=== PATIENT | female | born 1975 | race Asian ===

== ENCOUNTER 2017-06-07 11:44 | Observation (INO) | payer MEDICAID ==
[2017-06-07] MEDS ORDERED: Ondansetron 4 MG/2 ML SDV IVPUSH ONE (12:18)
[2017-06-07] MEDS ORDERED: HYDROmorphone 0.5 MG/0.5 ML Syringe IVPUSH ONE ×3 (12:18→15:51)
--- NOTE | 2017-06-07 12:24 | EDM.PDOC ---
ED HPI GENERAL MEDICAL PROBLEM - General Chief Complaint: Abdominal Pain Stated Complaint: ABDOMINAL PAIN Time Seen by Provider: 06/07/17 12:21 Source of Information: Reports: Patient History Limitations: Reports: No Limitations - History of Present Illness INITIAL COMMENTS - FREE TEXT/NARRATIVE: pt was seen earlier at the clinic and she was found to have lower abdomanal pain and her wbc was 20,000. She has had some pain for 2-3 days. She did have a small bm this am. She has not been having regular bms. Onset: Gradual, Other Duration: Day(s):, Getting Worse Location: Reports: Abdomen Associated Symptoms: Reports: Other ( constipation and lower abdomanal pain. ) Lower Abdomen Pain Score (Numeric/FACES): 10 - Related Data Allergies Allergy/AdvReac Type Severity Reaction Status Date / Time bupropion HCl Allergy Hives Verified 06/07/17 19:47 [From Wellbutrin] Home Meds: Home Meds Sertraline HCl [Sertraline HCl] 50 mg PO DAILY 02/06/16 [History] L. 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 Psychiatric History: Reports: Depression - Past Surgical History HEENT Surgical History: Reports: Oral Surgery, Tonsillectomy Female Surgical History: Reports: Section Social & Family History - Tobacco Use Smoking Status *Q: Current Every Day Smoker Years of Tobacco use: 20 Packs/Tins Daily: 1 Second Hand Smoke Exposure: Yes - Caffeine Use Caffeine Use: Reports: Coffee - Alcohol Use Days Per Week of Alcohol Use: 5 Number of Drinks Per Day: 2 Total Drinks Per Week: 10 - Recreational Drug Use Recreational Drug Use: No ED ROS GENERAL - Review of Systems Review Of Systems: See Below Constitutional: Reports: Decreased Appetite HEENT: Reports: No Symptoms Respiratory: Reports: No Symptoms Cardiovascular: Reports: No Symptoms Endocrine: Reports: No Symptoms GI/Abdominal: Reports: Abdominal Pain, Other (pt has pain accross the lower abdoman. She has not had diarrhea. She has not been vomiting. ) : Reports: No Symptoms Musculoskeletal: Reports: No Symptoms Skin: Reports: No Symptoms ED EXAM, GI/ABD - Physical Exam Exam: See Below Text/Narrative:: Pt has pain accross her lower abdoman. She states this comes in waves and goes to the level of a 7. She does not have a fever. Exam Limited By: No Limitations General Appearance: Alert, Moderate Distress Ears: Normal TMs Nose: Normal Inspection Throat/Mouth: Normal Inspection Head: Atraumatic Neck: Normal Inspection Respiratory/Chest: No Respiratory Distress Cardiovascular: Regular Rate, Rhythm GI/Abdominal Exam: Other ( Pt has diffuse lower abdomanal tenderness. This does not localize well. ) Rectal (Female) Exam: Other (pt has no hard stool in the rectum and no masses present. ) Back Exam: Normal Inspection Neurological: Alert, Oriented, Normal Cognition Psychiatric: Normal Affect, Anxious Course - Vital Signs Last Recorded V/S: Last Vital Signs Temp 36.8 C 06/08/17 02:57 Pulse 92 06/08/17 02:57 Resp 16 06/08/17 02:57 BP 111/59 L 06/08/17 02:57 Pulse Ox 96 06/08/17 02:57 - Orders/Labs/Meds Orders: Active Orders 24 hr Category Date Time Status Pelvis Non OB Ltd [US] Stat Exams 06/07/17 14:48 Taken Transvaginal Non OB [US] Stat Exams 06/07/17 14:48 Taken Medication Orders Acetaminophen (Tylenol) 650 mg PO Q4H PRN PRN Reason: Pain (Mild 1-3)/fever Last Admin: 06/08/17 07:11 Dose: 650 mg Admin: 06/08/17 02:59 Dose: 650 mg Admin: 06/07/17 22:55 Dose: 650 mg Admin: 06/07/17 18:21 Dose: 650 mg Docusate Sodium (Colace) 100 mg PO BID PRN PRN Reason: Constipation Hydromorphone HCl (Dilaudid) 0.5 mg IVPUSH Q2H PRN PRN Reason: Pain Last Admin: 06/08/17 06:40 Dose: 0.5 mg Admin: 06/08/17 00:59 Dose: 0.5 mg Admin: 06/07/17 20:52 Dose: 0.5 mg Admin: 06/07/17 18:22 Dose: 0.5 mg Sodium Chloride (Normal Saline) 1,000 mls @ 125 mls/hr IV ASDIRECTED CONCEPCION Last Admin: 06/08/17 03:47 Dose: 125 mls/hr Infusion: 06/08/17 02:48 Dose: 125 mls/hr Admin: 06/07/17 18:48 Dose: 125 mls/hr Potassium Chloride 20 meq/ (Premix) 100 mls @ 50 mls/hr IV ONETIME ONE Stop: 06/08/17 08:15 Last Infusion: 06/08/17 07:12 Dose: 30 mls/hr Admin: 06/08/17 06:34 Dose: 50 mls/hr Potassium Chloride 20 meq/ (Premix) 100 mls @ 50 mls/hr IV ONETIME ONE Stop: 06/08/17 10:29 Cefoxitin Sodium 2 gm/ Sodium (Chloride) 50 mls @ 100 mls/hr IV Q6H [facility] Magnesium Hydroxide (Milk Of Magnesia) 30 ml PO Q12H PRN PRN Reason: Constipation Ondansetron HCl (Zofran) 4 mg IV Q4H PRN PRN Reason: Nausea/Vomiting Oxycodone HCl (Oxycodone) 5 mg PO Q4H PRN PRN Reason: Pain (moderate 4-6) Last Admin: 06/08/17 07:11 Dose: 5 mg Admin: 06/08/17 02:59 Dose: 5 mg Admin: 06/07/17 22:55 Dose: 5 mg Admin: 06/07/17 18:22 Dose: 5 mg Pantoprazole Sodium (Protonix) 40 mg PO DAILY@0730 [facility] Polyethylene Glycol (Miralax) 17 gm PO DAILY PRN PRN Reason: Constipation Sertraline HCl (Zoloft) 50 mg PO DAILY [facility] Sodium Chloride (Saline Flush) 10 ml FLUSH ASDIRECTED PRN PRN Reason: Keep Vein Open Zolpidem Tartrate (Ambien) 5 mg PO BEDTIME PRN PRN Reason: Sleep Last Admin: 06/07/17 20:52 Dose: 5 mg Labs: Laboratory Tests 06/07/17 06/07/17 Range/Units 16:40 16:40 WBC 18.5 H (4.5-11.0) K/uL RBC 3.56 (3.30-5.50) M/uL Hgb 12.9 (12.0-15.0) g/dL Hct 37.2 (36.0-48.0) % MCV 105 H (80-98) fL MCH 36 H (27-31) pg MCHC 35 (32-36) % Plt Count 293 (150-400) K/uL Add Manual Diff Yes Neutrophils % (Manual) 81 H (36-66) % Band Neutrophils % 1 L (5-11) % Lymphocytes % (Manual) 7 L (24-44) % Monocytes % (Manual) 10 H (2-6) % Lipase 68 L (73-393) U/L Meds: Medications Generic Name Dose Route Start Last Admin Trade Name Freq PRN Reason Stop Dose Admin Acetaminophen 650 mg 06/07/17 17:50 06/08/17 07:11 Tylenol PO 650 mg Q4H PRN Administration Pain (Mild 1-3)/fever Docusate Sodium 100 mg 06/07/17 17:50 Colace PO BID PRN Constipation Hydromorphone HCl 0.5 mg 06/07/17 17:50 06/08/17 06:40 Dilaudid IVPUSH 0.5 mg Q2H PRN Administration Pain Sodium Chloride 1,000 mls @ 125 mls/hr 06/07/17 17:50 06/08/17 03:47 Normal Saline IV 125 mls/hr ASDIRECTED CONCEPCION Administration Potassium Chloride 20 meq/ 100 mls @ 50 mls/hr 06/08/17 06:16 06/08/17 07:12 Premix IV 06/08/17 08:15 30 mls/hr ONETIME ONE Infusion Potassium Chloride 20 meq/ 100 mls @ 50 mls/hr 06/08/17 08:30 Premix IV 06/08/17 10:29 ONETIME ONE Cefoxitin Sodium 2 gm/ Sodium 50 mls @ 100 mls/hr 06/08/17 12:00 Chloride IV Q6H [facility] Magnesium Hydroxide 30 ml 06/07/17 17:50 Milk Of Magnesia PO Q12H PRN Constipation Ondansetron HCl 4 mg 06/07/17 17:50 Zofran IV Q4H PRN Nausea/Vomiting Oxycodone HCl 5 mg 06/07/17 17:50 06/08/17 07:11 Oxycodone PO 5 mg Q4H PRN Administration Pain (moderate 4-6) Pantoprazole Sodium 40 mg 06/08/17 07:30 Protonix PO DAILY@0730 [facility] Polyethylene Glycol 17 gm 06/07/17 17:50 Miralax PO DAILY PRN Constipation Sertraline HCl 50 mg 06/08/17 09:00 Zoloft PO DAILY [facility] Sodium Chloride 10 ml 06/07/17 17:50 Saline Flush FLUSH ASDIRECTED PRN Keep Vein Open Zolpidem Tartrate 5 mg 06/07/17 20:44 06/07/17 20:52 Ambien PO 5 mg BEDTIME PRN Administration Sleep Discontinued Medications Generic Name Dose Route Start Last Admin Trade Name Freq PRN Reason Stop Dose Admin Hydromorphone HCl 0.5 mg 06/07/17 12:18 06/07/17 12:44 Dilaudid IVPUSH 06/07/17 12:19 0.5 mg ONETIME ONE Administration Hydromorphone HCl 0.5 mg 06/07/17 13:18 06/07/17 13:24 Dilaudid IVPUSH 06/07/17 13:19 0.5 mg ONETIME ONE Administration Hydromorphone HCl 0.5 mg 06/07/17 15:51 06/07/17 16:13 Dilaudid IVPUSH 06/07/17 15:52 0.5 mg ONETIME ONE Administration Sodium Chloride 1,000 mls @ 999 mls/hr 06/07/17 12:30 06/07/17 12:40 Normal Saline IV 999 mls/hr ASDIRECTED [facility] Administration Sodium Chloride 70 mls @ 3 mls/sec 06/07/17 13:30 06/07/17 13:32 Normal Saline IV 06/07/17 14:30 3 mls/sec ASDIRECTED CON[facility] Administration Cefoxitin Sodium 2 gm/ Sodium 50 mls @ 100 mls/hr 06/07/17 17:50 06/08/17 05: 35 Chloride IV 100 mls/hr Q6H [facility] Administration Iopamidol 86 ml 06/07/17 13:30 06/07/17 13:32 Isovue-300 (61%) IV 06/07/17 14:30 100 ml . DIRECTED [facility] Administration Lidocaine HCl 2 ml 06/08/17 06:18 06/08/17 06:35 Xylocaine-Mpf 1% INJECT 10/04/17 06:19 2 ml ONETIME ONE Administration Ondansetron HCl 4 mg 06/07/17 12:18 06/07/17 12:41 Zofran IVPUSH 06/07/17 12:19 4 mg ONETIME ONE Administration Polyethylene Glycol 34 gm 06/07/17 17:50 06/07/17 18:39 Miralax PO 06/07/17 17:51 34 gm ONETIME ONE Administration Potassium Chloride 40 meq 06/08/17 06:16 06/08/17 06:33 Klor-Con M20 PO 06/08/17 06:17 40 meq ONETIME ONE Administration - Re-Assessments/Exams Free Text/Narrative Re-Assessment/Exam: 06/07/17 16:29 Pt had a cat scan of the abdoman which showed fluid filled small bowel with some thickening. There was a concern about the left tube but the US was neg. Will repeat a ua and a crp. Departure - Departure Time of Disposition: 02:55 Disposition: Admitted As Inpatient 65 Condition: Fair Clinical Impression: Inflammation of small intestine, Dehydration - Discharge Information - My Orders Last 24 Hours: My Active Orders 06/07/17 14:48 Pelvis Non OB Ltd [US] Stat Transvaginal Non OB [US] Stat - Assessment/Plan Last 24 Hours: My Active Orders 06/07/17 14:48 Pelvis Non OB Ltd [US] Stat Transvaginal Non OB [US] Stat
[2017-06-07] MEDS ORDERED: Sodium Chloride 0.9% 1,000 ML IV SCH (12:30)
[2017-06-07] MEDS ORDERED: Iopamidol 612 MG/ML 100 ML Bottle IV SCH (13:30)
--- NOTE | 2017-06-07 13:52 | CT ---
Abdomen Pelvis w Cont HISTORY: Abdominal pain. Dose: Total DLP 432. COMPARISON: None FINDINGS: The liver, spleen, pancreas, adrenal glands and abdominal aorta appear normal. Kidneys unre markable. There are some scattered fluid-filled small bowel loops in the midabdomen and pelvis. No obstruction. This could represent nonspecific enteritis. Within the pelvis in the left adnexal region there is a tubular structure could represent fluid-fille d left-sided fallopian tube. Underlying hydrosalpinx or pyosalpinx not excluded. This is best seen on axial images 117 through 122 and coronal image 26. This would be better evaluated with pelvic ultras ound. The right adnexa appears unremarkable. No free fluid seen. Impression: 1. Probable mild nonspecific small bowel enteritis. 2. Fluid-filled tubular structure left adnexa consider hydrosalpinx or pyosalpinx. Would suggest anthony elation with pelvic ultrasound.
--- NOTE | 2017-06-07 17:13 | PCM.HP ---
H&P History of Present Illness - General Date of Service: 06/07/17 Admit Problem/Dx: Admission Diagnosis/Problem Admission Diagnosis/Problem Enteritis Source of Information: Patient, Family, Provider, RN Notes Reviewed History Limitations: Reports: No Limitations - History of Present Illness Initial Comments - Free Text/Narative: Ms. Burns is a 41-year-old woman was admitted to observation status through the emergency department with small bowel enteritis. She has had ongoing difficulty with chronic constipation, and intermittently requires use of laxatives. Began developed lower abdominal pain approximately 2 days prior to admission that was described as an intense ache it would seem to come and go somewhat. Pain did not otherwise radiate and was not associated with eating, urination, or bowel movements. She reports her menstrual periods have been regular and she's had no abnormal vaginal discharge. She was seen and evaluated in the clinic this morning, was noted to have significant pain across the lower abdomen associated with an elevated white count. She was referred to the emergency department for further evaluation. CT scan of the abdomen showed a few dilated loops of small intestine with some mild wall thickening consistent with possible mild enteritis. Was an area in the left adnexal region that appeared to be a dilated tube and follow-up with ultrasound was recommended. Pelvic and transvaginal ultrasound showed no significant abnormalities in the left adnexal region. 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 Psychiatric History: Reports: Depression - Past Surgical History HEENT Surgical History: Reports: Oral Surgery, Tonsillectomy Female Surgical History: Reports: Section Social & Family History - Tobacco Use Smoking Status *Q: Current Every Day Smoker Years of Tobacco use: 20 Packs/Tins Daily: 1 Second Hand Smoke Exposure: Yes - Caffeine Use Caffeine Use: Reports: Coffee - Alcohol Use Days Per Week of Alcohol Use: 5 Number of Drinks Per Day: 2 Total Drinks Per Week: 10 - Recreational Drug Use Recreational Drug Use: No H&P Review of Systems - Review of Systems: Review Of Systems: See Below General: Reports: Decreased Appetite. Denies: Fever, Chills, Weakness, Diaphoresis HEENT: Reports: No Symptoms Pulmonary: Reports: No Symptoms Cardiovascular: Reports: No Symptoms Gastrointestinal: Reports: Abdominal Pain, Diarrhea, Nausea. Denies: Black Stool, Bloody Stool, Constipation, Vomiting Genitourinary: Reports: No Symptoms Musculoskeletal: Reports: No Symptoms Skin: Reports: No Symptoms Psychiatric: Reports: No Symptoms Neurological: Reports: No Symptoms Hematologic/Lymphatic: Reports: No Symptoms Immunologic: Reports: No Symptoms Exam - Exam Exam: See Below - Vital Signs Vital Signs: Last Vital Signs Temp 100.4 F 06/07/17 11:57 Pulse 89 06/07/17 16:49 Resp 16 06/07/17 16:49 BP 118/62 06/07/17 16:49 Pulse Ox 97 06/07/17 16:49 Weight: 125 lb 3.561 oz - Exam General: Alert, Oriented, Cooperative, Mild Distress HEENT: Conjunctiva Clear, Hearing Intact, Mucosa Moist & Bloomer, Normal Nasal Septum, Posterior Pharynx Clear, Pupils Equal Neck: Supple, Trachea Midline, +2 Carotid Pulse wo Bruit Lungs: Clear to Auscultation, Normal Respiratory Effort Cardiovascular: Regular Rate, Regular Rhythm, Normal S1, Normal S2. No: Systolic Murmur, Diastolic Murmur GI/Abdominal Exam: Normal Bowel Sounds, Soft, No Distention, Tender. No: Distended, Guarding, Rigid, Rebound Back Exam: Normal Inspection, Full Range of Motion Extremities: Normal Range of Motion, Non-Tender, No Pedal Edema Skin: Warm, Dry Neurological: Cranial Nerves Intact, Strength Equal Bilateral, Normal Speech, Normal Tone, Sensation Intact. No: Focal Deficit Neuro Extensive - Mental Status: Alert, Oriented x3, Normal Mood/Affect, Normal Cognition, Memory Intact - Patient Data Lab Results Last 24 hrs: Laboratory Results - last 24 hr 06/07/17 06/07/17 Range/Units 16:40 16:40 WBC 18.5 H (4.5-11.0) K/uL RBC 3.56 (3.30-5.50) M/uL Hgb 12.9 (12.0-15.0) g/dL Hct 37.2 (36.0-48.0) % MCV 105 H (80-98) fL MCH 36 H (27-31) pg MCHC 35 (32-36) % Plt Count 293 (150-400) K/uL Add Manual Diff Yes Neutrophils % (Manual) 81 H (36-66) % Band Neutrophils % 1 L (5-11) % Lymphocytes % (Manual) 7 L (24-44) % Monocytes % (Manual) 10 H (2-6) % Lipase 68 L (73-393) U/L Result Diagrams: 06/07/17 16:40 Bo Results Last 24 hrs: Microbiology 06/07/17 12:54 Stool Occult Blood (BO) - Final Stool / Feces NEGATIVE OCCULT BLOOD *Q Meaningful Use (ADM) - VTE *Q VTE Criteria *Q: - VTE Risk Assess *Q Each Risk Factor Represents 1 Point: Age 41 - 59 years Total Score 1 Point Risk Factors: 1 Each Risk Factor Represents 2 Points: None Total Score 2 Point Risk Factors: 0 Each Risk Factor Represents 3 Points: None Total Score 3 Point Risk Factors: 0 Each Risk Factor Represents 5 Points: None Total Score 5 Point Risk Factors: 0 Venous Thromboembolism Risk Factor Score *Q: 1 - Stroke *Q Stroke Criteria *Q: - AMI *Q AMI Criteria *Q: Problem List Initiated/Reviewed/Updated: Yes Orders Last 24hrs: Active Orders 24 hr Category Date Time Status Patient Status Manage Transfer [TRANSFER] Routine ADT 06/07/17 16:58 Ordered Pelvis Non OB Ltd [US] Stat Exams 06/07/17 14:48 Taken Transvaginal Non OB [US] Stat Exams 06/07/17 14:48 Taken UA W/MICROSCOPIC [URIN] Urgent Lab 06/07/17 16:31 Uncollected Sodium Chloride 0.9% [Normal Saline] 1,000 ml Med 06/07/17 12:30 Active IV ASDIRECTED Resuscitation Status Routine Resus Stat 06/07/17 16:59 Ordered Medication Orders Sodium Chloride (Normal Saline) 1,000 mls @ 999 mls/hr IV ASDIRECTED CONCEPCION Last Admin: 06/07/17 12:40 Dose: 999 mls/hr Assessment/Plan Comment:: ASSESSMENT AND PLAN ENTERITIS-this seems to be the most likely explanation for her current symptoms. She had one loose bowel movement in the last 2 days otherwise has not had a good bowel movement for several days. She has felt chilled but has not had significant documented temperature elevation. White blood cell count is elevated with stable vital signs. She does report recent exposure to Giardia which was found in one of her cat's. CT scan adjusted possible inflammation in the left fallopian tube, this was not found when she was further evaluated with ultrasound. -IV fluids for hydration -Pain medication and antiemetic therapy as needed -Cefoxitin 2 g IV every 6 hours -Stool studies for ova and parasites -Monitor lacks 34 g by mouth now MAINTENANCE ISSUES -DVT prophylaxis; ambulation -GI prophylaxis; continue outpatient PPI therapy -Springer catheter; not required -Nutrition; full liquid diet -Nicotinic dependence; not required CODE STATUS-Full Code ADMISSION STATUS-this patient will be admitted to observation status, expect no more than a one night hospital stay for evaluation and management of problems as outlined above. DISPOSITION-anticipate discharge to home after the hospital stay. PRIMARY CARE PROVIDER-Shanti Owusu
[2017-06-07] MEDS ORDERED: Docusate Sodium 100 MG Cap PO PRN (17:50)
[2017-06-07] MEDS ORDERED: Sodium Chloride 0.9% 10 ML Syringe FLUSH PRN (17:50)
[2017-06-07] MEDS ORDERED: Ondansetron 4 MG/2 ML SDV IV PRN (17:50)
[2017-06-07] MEDS ORDERED: Polyethylene Glycol 3350 Powder 17 GM Packet PO PRN (17:50)
[2017-06-07] MEDS ORDERED: Magnesium Hydroxide 400 MG/5 ML Susp 30 ML Cup PO PRN (17:50)
[2017-06-07] MEDS ORDERED: Polyethylene Glycol 3350 Powder 17 GM Packet PO ONE (17:50)
[2017-06-07] MEDS: Acetaminophen 325 MG Tab PO PRN ×2 (18:21→22:55)
[2017-06-07] MEDS: HYDROmorphone 0.5 MG/0.5 ML Syringe IVPUSH PRN ×2 (18:22→20:52)
[2017-06-07] MEDS: oxyCODONE 5 MG Tab PO PRN ×2 (18:22→22:55)
[2017-06-07] MEDS: cefOXitin 2 GM in Sodium Chloride 0.9% 50 ML IV SCH ×2 (18:38→22:56)
[2017-06-07] MEDS: Sodium Chloride 0.9% 1,000 ML IV SCH (18:48)
[2017-06-07] MEDS ORDERED: Zolpidem 5 MG Tab PO PRN (20:44)
[2017-06-08] MEDS: HYDROmorphone 0.5 MG/0.5 ML Syringe IVPUSH PRN ×2 (00:59→06:40)
[2017-06-08] MEDS: Acetaminophen 325 MG Tab PO PRN ×2 (02:59→07:11)
[2017-06-08] MEDS: oxyCODONE 5 MG Tab PO PRN ×3 (02:59→12:43)
[2017-06-08] MEDS: Sodium Chloride 0.9% 1,000 ML IV SCH (03:47)
[2017-06-08] MEDS: cefOXitin 2 GM in Sodium Chloride 0.9% 50 ML IV SCH (05:35)
[2017-06-08] MEDS ORDERED: Potassium Chloride 20 MEQ in Premix Bag 1 BAG IV ONE ×2 (06:16→08:30)
[2017-06-08] MEDS ORDERED: Potassium Chloride 20 MEQ Tab.ER PO ONE ×2 (06:16→11:00)
[2017-06-08] MEDS ORDERED: Pantoprazole 40 MG Tab.CR PO SCH (07:30)
[2017-06-08 08:20] VITALS: BP 107/68
--- NOTE | 2017-06-08 08:52 | US ---
Transvaginal Non OB, Pelvis Non OB Ltd HISTORY: lower abdominal pain, possible left tube infection Transabdominal and transvaginal technique were used during the exam. FINDINGS: The uterus appears within normal limits in size and echogenicity measuring 8.0 x 3.5 x 5.0 cm. No rocío rine mass is identified. scar is noted lower uterine segment. A normal appearing endometria l stripe is identified measuring 8 mm in thickness. Both ovaries are within normal limits in size and echogenicity. The right ovary measures 2.4 x 1.5 x 1.7 cm. Left ovary measures 3.4 x 2.0 x 2.2 cm. Probable dominant follicle right ovary measures 1.1 cm in diameter. Dominant probable follicular cyst left ovary measures 1.9 x 1.6 x 1.8 cm. No other ad nexal or other pelvic mass or abnormal fluid collections are seen. There is good color Doppler blood flow to each ovary. No free fluid is seen in the cul-de-sac. IMPRESSION: 1. Dominant follicular cysts are noted on each ovary. I see no signs of tubo-ovarian abscess. 2. scar is noted lower uterine segment. No other abnormality is identified. No sonographic abnormality of the pelvis is identified.
[2017-06-08] MEDS ORDERED: Sertraline 50 MG Tab PO SCH (09:00)
[2017-06-08] MEDS: Potassium Chloride 20 MEQ, Lidocaine 1% 2 ML in Sodium Chloride 0.9% 100 ML IV SCH (10:00)
--- NOTE | 2017-06-08 10:44 | PCM.DCSUM1 ---
Discharge Summary - Hospital Course Brief History: Ms. Burns is a 41-year-old woman who is admitted to observation status through the emergency department with lower abdominal pain secondary to small bowel enteritis. - Discharge Data Discharge Date: 06/08/17 Discharge Disposition: Home, Self-Care 01 Condition: Stable - Discharge Diagnosis/Problem(s) (1) Hypokalemia SNOMED Code(s): 05853319 ICD Code: E87.6 - HYPOKALEMIA Status: Acute Current Visit: Yes (2) Dehydration SNOMED Code(s): 63896054 ICD Code: E86.0 - DEHYDRATION Status: Acute Current Visit: Yes (3) Enteritis, bacterial SNOMED Code(s): 28668591 ICD Code: A04.9 - BACTERIAL INTESTINAL INFECTION, UNSPECIFIED Status: Acute Current Visit: Yes - Patient Summary/Data Hospital Course: Ms. Burns is a 41-year-old woman who presented with a 2 day history of lower abdominal pain and nausea. She was initially evaluated in the clinic white count was noted to be elevated at 20,000 and abdominal flat plate x-ray showed evidence of dilated small intestine. CT scan of the abdomen was obtained which did show a few dilated loops of small bowel and inflammation consistent with a mild enteritis. There was also question of possible inflammation of the left fallopian tube, ultrasound was obtained and showed no obvious abnormalities. She was given IV fluids for hydration, antiemetic therapy, pain meds, and IV antibiotic therapy with Cefoxitin. By the following morning her white count remained elevated but she was feeling significantly improved with much less abdominal pain and was tolerating a soft diet. Potassium level was found to be significantly low at 2.6 and she was given oral and IV potassium replacement. Because of recent exposure to Giardia stool studies were obtained and are pending at the time of discharge. She was encouraged to stay in the hospital for an additional 24 hours of IV antibiotic therapy but she much preferred to be discharged home. She will be on oral antibiotic therapy with Flagyl and ciprofloxacin for an additional 7 days. Activity will be as tolerated and she will be on a soft diet. Follow-up appointment will be scheduled with Shanti Owusu within 7 days. Potassium level should be obtained at the time of follow- up appointment. - Patient Instructions Diet: GI Soft/Low Residue/Low Fiber Activity: As Tolerated Other/Special Instructions: Schedule follow-up appointment with Shanti Owusu within one week. Potassium level should be obtained at the time of follow -up appointment. - Discharge Plan Prescriptions/Med Rec: Ciprofloxacin [Ciprofloxacin HCl] 500 mg PO BID #14 tab metroNIDAZOLE [Flagyl] 500 mg PO Q8H #21 tab oxyCODONE 5 mg PO Q4H PRN #12 tablet PRN Reason: Pain Home Medications: Home Meds Sertraline HCl 50 mg PO DAILY 02/06/16 [History] L. Rhamnosus GG/Inulin [Culturelle Capsule] 1 each PO DAILY 06/07/17 [History] Pantoprazole [ProTONIX] 40 mg PO DAILY 06/07/17 [History] Ciprofloxacin [Ciprofloxacin HCl] 500 mg PO BID #14 tab 06/08/17 [Rx] metroNIDAZOLE [Flagyl] 500 mg PO Q8H #21 tab 06/08/17 [Rx] oxyCODONE 5 mg PO Q4H PRN #12 tablet 06/08/17 [Rx] Referrals: Shanti Owusu CNM [Primary Care Provider] - - Patient Data Vitals - Most Recent: Last Vital Signs Temp 98.4 F 06/08/17 08:00 Pulse 81 06/08/17 08:00 Resp 16 06/08/17 08:00 BP 107/68 06/08/17 08:00 Pulse Ox 94 L 06/08/17 08:00 Weight - Most Recent: 126 lb 9.607 oz I&O - Last 24 hours: Intake & Output 06/07/17 06/08/17 06/08/17 22:59 06:59 14:59 Intake Total 110 2593 100 Balance 110 2593 100 Lab Results - Last 24 hrs: Laboratory Results - last 24 hr 06/07/17 06/08/17 06/08/17 Range/Units 17:32 05:45 05:45 WBC 18.9 H (4.5-11.0) K/uL RBC 3.35 (3.30-5.50) M/uL Hgb 12.2 (12.0-15.0) g/dL Hct 35.4 L (36.0-48.0) % MCV 106 H (80-98) fL MCH 36 H (27-31) pg MCHC 35 (32-36) % Plt Count 287 (150-400) K/uL Neut % (Auto) 79 H (36-66) % Lymph % (Auto) 11 L (24-44) % [place]ison % (Auto) 9 H (2-6) % Eos % (Auto) 1 L (2-4) % Baso % (Auto) 0 (0-1) % Sodium 138 L (140-148) mmol/L Potassium 2.6 L* (3.6-5.2) mmol/L Chloride 101 (100-108) mmol/L Carbon Dioxide 30 (21-32) mmol/L Anion Gap 9.6 (5.0-14.0) mmol/L BUN 4 L (7-18) mg/dL Creatinine 0.7 (0.6-1.0) mg/dL Est Cr Clr Drug Dosing 86.60 mL/min Estimated GFR (MDRD) > 60 (>60) Glucose 98 (74-106) mg/dL Calcium 7.2 L (8.5-10.1) mg/dL Urine Color Yellow Urine Appearance Slightly cloudy Urine pH 5.0 (4.5-8.0) Ur Specific [place] 1.010 (1.008-1.030) Urine Protein Trace (NEGATIVE) mg/dL Urine Glucose (UA) Normal (NEGATIVE) mg/dL Urine Ketones 15 H (NEGATIVE) mg/dL Urine Occult Blood Negative (NEGATIVE) Urine Nitrite Negative (NEGATIVE) Urine Bilirubin Small (NEGATIVE) Urine Urobilinogen 1 (NORMAL) mg/dL Ur Leukocyte Esterase Negative (NEGATIVE) Urine RBC 0-5 (0-5) Urine WBC 0-5 (0-5) Ur Epithelial Cells Not seen Amorphous Sediment Rare Urine Bacteria Not seen Urine Mucus Not seen Med Orders - Current: Current Medications Acetaminophen (Tylenol) 650 mg PO Q4H PRN PRN Reason: Pain (Mild 1-3)/fever Last Admin: 06/08/17 07:11 Dose: 650 mg Docusate Sodium (Colace) 100 mg PO BID PRN PRN Reason: Constipation Hydromorphone HCl (Dilaudid) 0.5 mg IVPUSH Q2H PRN PRN Reason: Pain Last Admin: 06/08/17 06:40 Dose: 0.5 mg Sodium Chloride (Normal Saline) 1,000 mls @ 125 mls/hr IV ASDIRECTED CONCEPCION Last Admin: 06/08/17 03:47 Dose: 125 mls/hr Cefoxitin Sodium 2 gm/ Sodium (Chloride) 50 mls @ 100 mls/hr IV Q6H [facility] Potassium Chloride 20 meq/Lidocaine HCl 2 ml/ Sodium Chloride 112 mls @ 56 mls/ hr IV Q2H [facility] Stop: 06/08/17 13:59 Magnesium Hydroxide (Milk Of Magnesia) 30 ml PO Q12H PRN PRN Reason: Constipation Ondansetron HCl (Zofran) 4 mg IV Q4H PRN PRN Reason: Nausea/Vomiting Last Admin: 06/08/17 07:34 Dose: 4 mg Oxycodone HCl (Oxycodone) 5 mg PO Q4H PRN PRN Reason: Pain (moderate 4-6) Last Admin: 06/08/17 07:11 Dose: 5 mg Pantoprazole Sodium (Protonix) 40 mg PO DAILY@0730 [facility] Last Admin: 06/08/17 09:56 Dose: 40 mg Polyethylene Glycol (Miralax) 17 gm PO DAILY PRN PRN Reason: Constipation Potassium Chloride (Klor-Con M20) 40 meq PO ONETIME ONE Stop: 06/08/17 11:01 Sertraline HCl (Zoloft) 50 mg PO DAILY [facility] Last Admin: 06/08/17 09:57 Dose: 50 mg Sodium Chloride (Saline Flush) 10 ml FLUSH ASDIRECTED PRN PRN Reason: Keep Vein Open Zolpidem Tartrate (Ambien) 5 mg PO BEDTIME PRN PRN Reason: Sleep Last Admin: 06/07/17 20:52 Dose: 5 mg Discontinued Medications Hydromorphone HCl (Dilaudid) 0.5 mg IVPUSH ONETIME ONE Stop: 06/07/17 12:19 Last Admin: 06/07/17 12:44 Dose: 0.5 mg Hydromorphone HCl (Dilaudid) 0.5 mg IVPUSH ONETIME ONE Stop: 06/07/17 13:19 Last Admin: 06/07/17 13:24 Dose: 0.5 mg Hydromorphone HCl (Dilaudid) 0.5 mg IVPUSH ONETIME ONE Stop: 06/07/17 15:52 Last Admin: 06/07/17 16:13 Dose: 0.5 mg Sodium Chloride (Normal Saline) 1,000 mls @ 999 mls/hr IV ASDIRECTED CONCEPCION Last Admin: 06/07/17 12:40 Dose: 999 mls/hr Sodium Chloride (Normal Saline) 70 mls @ 3 mls/sec IV ASDIRECTED CONCEPCION Stop: 06/07/17 14:30 Last Admin: 06/07/17 13:32 Dose: 3 mls/sec Cefoxitin Sodium 2 gm/ Sodium (Chloride) 50 mls @ 100 mls/hr IV Q6H [facility] Last Admin: 06/08/17 05:35 Dose: 100 mls/hr Potassium Chloride 20 meq/ (Premix) 100 mls @ 50 mls/hr IV ONETIME ONE Stop: 06/08/17 08:15 Last Infusion: 06/08/17 07:12 Dose: 30 mls/hr Potassium Chloride 20 meq/ (Premix) 100 mls @ 50 mls/hr IV ONETIME ONE Stop: 06/08/17 10:29 Last Infusion: 06/08/17 09:58 Dose: 40 mls/hr Iopamidol (Isovue-300 (61%)) 86 ml IV . DIRECTED [facility] Stop: 06/07/17 14:30 Last Admin: 06/07/17 13:32 Dose: 100 ml Lidocaine HCl (Xylocaine-Mpf 1%) 2 ml INJECT ONETIME ONE Stop: 06/08/17 06:19 Last Admin: 06/08/17 06:35 Dose: 2 ml Ondansetron HCl (Zofran) 4 mg IVPUSH ONETIME ONE Stop: 06/07/17 12:19 Last Admin: 06/07/17 12:41 Dose: 4 mg Polyethylene Glycol (Miralax) 34 gm PO ONETIME ONE Stop: 06/07/17 17:51 Last Admin: 06/07/17 18:39 Dose: 34 gm Potassium Chloride (Klor-Con M20) 40 meq PO ONETIME ONE Stop: 06/08/17 06:17 Last Admin: 06/08/17 06:33 Dose: 40 meq *Q Meaningful Use (DIS) - VTE *Q VTE Criteria *Q: - Stroke *Q Stroke Criteria *Q: - AMI *Q AMI Criteria *Q:
[2017-06-08] MEDS ORDERED: cefOXitin 2 GM in Sodium Chloride 0.9% 50 ML IV SCH (12:00)
== END 2017-06-08 13:45 | disposition home or self-care (01) ==
LOC: JP.ED 11:44 → JP.MS 16:58
PROVIDERS: ADMIT Hospitalist; ATTEND Hospitalist
DX: E87.6 Hypokalemia (principal); E86.0 Dehydration; A04.9 Bacterial intestinal infection, unspecified; F32.9 Major depressive disorder, single episode, unspecified; Z79.899 Other long term (current) drug therapy; Z88.8 Allergy status to other drugs, medicaments and biological substances; Z98.890 Other specified postprocedural states; F17.210 Nicotine dependence, cigarettes, uncomplicated
CPT/HCPCS: 36415; 74177; 76830; 76857; 80048; 81001; 82272; 83690; 85025; 87040; 87177; 87209; 96361; 96366; 96374; 96375; 96376; 99285; A9270; G0378; J0694; J1170; J2405; J3480; J7030; J7040; J7050; Q9967; 96365

== ENCOUNTER 2017-06-21 21:28 | Emergency (ER) | payer MEDICAID ==
[2017-06-21 22:33] VITALS: BP 119/69
[2017-06-21] MEDS ORDERED: Hyoscyamine 0.125 MG Tab.SL SL ONE (23:19)
--- NOTE | 2017-06-21 23:23 | EDM.PDOC ---
ED HPI GENERAL MEDICAL PROBLEM - General Chief Complaint: Abdominal Pain Stated Complaint: ABDOMINAL PAIN Time Seen by Provider: 06/21/17 22:58 Source of Information: Reports: Patient, Family, Old Records, RN Notes Reviewed History Limitations: Reports: No Limitations - History of Present Illness INITIAL COMMENTS - FREE TEXT/NARRATIVE: 41-year-old female presents emergency department day complaint of generalized abdominal pain, she was evaluated and admitted the hospital approximately [address] scan ultrasound evaluation thought to have an enteritis was treated with IV antibiotics pelvic ultrasound was unrevealing of any particular source for her pain. She describes the pain as generalized there is not one specific point. She does have, as with bowel movements she can wax and wane between constipation and loose stools, she states she is not had a solid formed stool for several years Lower Abdomen Pain Score (Numeric/FACES): 8 - Related Data Allergies Allergy/AdvReac Type Severity Reaction Status Date / Time bupropion HCl Allergy Hives Verified 06/07/17 19:47 [From Wellbutrin] Home Meds: Home Meds Sertraline HCl 50 mg PO DAILY 02/06/16 [History] L. Rhamnosus GG/Inulin [Culturelle Capsule] 1 each PO DAILY 06/07/17 [History] Pantoprazole [ProTONIX] 40 mg PO DAILY 06/07/17 [History] Past Medical History Gastrointestinal History: Reports: Chronic Constipation, Chronic Diarrhea, Hemorrhoids [employer]PER[employer] History: Reports: , Spontaneous Psychiatric History: Reports: Depression - Past Surgical History HEENT Surgical History: Reports: Oral Surgery, Tonsillectomy Female Surgical History: Reports: Section Social & Family History - Tobacco Use Smoking Status *Q: Current Every Day Smoker Years of Tobacco use: 20 Packs/Tins Daily: 1 Used Tobacco, but Quit: No Second Hand Smoke Exposure: Yes - Caffeine Use Caffeine Use: Reports: Coffee Caffeine Use Comment: 1 cup coffee/day & tea per day - Alcohol Use Days Per Week of Alcohol Use: 5 Number of Drinks Per Day: 2 Total Drinks Per Week: 10 - Recreational Drug Use Recreational Drug Use: No ED ROS GENERAL - Review of Systems Review Of Systems: See Below Constitutional: Reports: No Symptoms HEENT: Reports: No Symptoms Respiratory: Reports: No Symptoms Cardiovascular: Reports: No Symptoms GI/Abdominal: Reports: Abdominal Pain, Diarrhea, Flatus. Denies: Nausea, Vomiting : Reports: No Symptoms ED EXAM, GI/ABD - Physical Exam Exam: See Below Exam Limited By: No Limitations General Appearance: Alert, WD/WN, No Apparent Distress GI/Abdominal Exam: Normal Bowel Sounds, Soft, No Organomegaly, No Distention, No Abnormal Bruit, No Mass, Tender (Generalized) Course - Vital Signs Last Recorded V/S: Last Vital Signs Temp 95.4 F 06/21/17 22:32 Pulse 105 H 06/21/17 22:32 Resp 18 06/21/17 22:32 BP 119/69 06/21/17 22:32 Pulse Ox 99 06/21/17 22:32 - Orders/Labs/Meds Meds: Medications Discontinued Medications Generic Name Dose Route Start Last Admin Trade Name Freq PRN Reason Stop Dose Admin Belladonna Alkaloids/Opium 1 supp 06/22/17 00:08 06/22/17 00:17 B & O Supprettes No. 15a RECTAL 06/22/17 00:09 1 supp ONETIME ONE Administration Hyoscyamine 0.125 mg 06/21/17 23:19 06/21/17 23:24 Hyomax-Sl SL 06/21/17 23:20 0.125 mg ONETIME ONE Administration Departure - Departure Time of Disposition: 00:57 Disposition: Home, Self-Care 01 Condition: Fair Clinical Impression: Abdominal cramping - Discharge Information Referrals: Shanti Owusu CNM [Primary Care Provider] - Forms: ED Department Discharge Additional Instructions: Try the belladonna 1 by mouth twice a day as needed, recommend follow-up with your primary care this week for further evaluation and possible referral to gastroenterology - Assessment/Plan Plan: Assessment Acuity = acute Site and laterality = crampy abdominal pain Etiology = unclear etiology suspicious for irritable bowel syndrome Manifestations = none Location of injury = Home Lab values = none Plan She had minimal relief with homocystine however she had some relief with cramping with belladonna plan is to discharge home with belladonna phenobarbital 1 tab by mouth twice a day when necessary she is to follow-up with her primary care this week 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 This note was dictated using dragon voice recognition software please call with any questions.
[2017-06-22] MEDS ORDERED: Belladonna Alkaloids/Opium 16.2-30 MG Supp RECTAL ONE (00:08)
== END 2017-06-22 01:07 | disposition home or self-care (01) ==
LOC: JP.ED 21:28
DX: R10.9 Unspecified abdominal pain (principal); F32.9 Major depressive disorder, single episode, unspecified; F17.210 Nicotine dependence, cigarettes, uncomplicated; Z79.899 Other long term (current) drug therapy; Z88.8 Allergy status to other drugs, medicaments and biological substances
CPT/HCPCS: 99284; A9270

== ENCOUNTER 2022-02-11 21:45 | Emergency (ER) | payer MEDICAID ==
[2022-02-11] MEDS ORDERED: Sodium Chloride 0.9% 10 ML Syringe FLUSH PRN (22:30)
[2022-02-11] MEDS ORDERED: Ketorolac 30 MG/ML SDV IVPUSH ONE (22:39)
[2022-02-11] MEDS ORDERED: Iopamidol 612 MG/ML 100 ML Bottle IV STA (22:56)
[2022-02-11] MEDS ORDERED: Sodium Chloride 0.9% 50 ML IV STA (22:56)
[2022-02-11 23:02] LABS: ESTIMATED GFR > 60 (>60)
[2022-02-11 23:21] LABS: CORONAVIRUS COVID-19 NAA NEGATIVE (NEGATIVE)
[2022-02-11] MEDS ORDERED: Potassium Chloride Riders 20 MEQ in Premix Bag 1 BAG IV ONE (23:34)
[2022-02-11] MEDS ORDERED: Lidocaine 1% 5 ML VIAL INJECT ONE (23:40)
[2022-02-12] MEDS ORDERED: Levofloxacin/Dextrose 5%-Water 750 MG in Premix Bag 1 BAG IV ONE (00:18)
[2022-02-12 00:34] VITALS: BP 148/94; PULSE 89
[2022-02-12] MEDS ORDERED: Potassium Chloride Riders 20 MEQ in Premix Bag 1 BAG IV ONE (00:34)
== END 2022-02-12 02:12 ==
LOC: JP.ED 21:45
DX: J43.9 Emphysema, unspecified (principal); E87.6 Hypokalemia; F17.210 Nicotine dependence, cigarettes, uncomplicated; Z79.899 Other long term (current) drug therapy; Z20.822 Contact with and (suspected) exposure to COVID-19
CPT/HCPCS: 0241U; 36415; 71260; 80053; 83605; 85025; 86140; 87040; 96365; 96366; 96368; 96375; 99285; J1885; J1956; J3480; J3490; Q9967

== ENCOUNTER 2024-09-21 22:43 | Emergency (ER) | payer MEDICAID ==
[2024-09-21 23:07] VITALS: BP 125/78; PULSE 121
[2024-09-22] MEDS: Diphtheria,Pertussis(Acell),Tetanus Vaccine 0.5 ML Syringe IM ONE (01:14)
[2024-09-22] MEDS: Bupivacaine 0.25% 10 ML SDV INJECT ONE (01:14)
[2024-09-22] MEDS: Lidocaine 1% 10 ML MDV INJECT ONE (01:14)
[2024-09-22] MEDS: Bacitracin Oint 1 GM U/D Packet TOP ONE (01:14)
== END 2024-09-22 01:27 | disposition home or self-care (01) ==
LOC: JP.ED 22:43
DX: S41.111A Laceration without foreign body of right upper arm, initial encounter (principal); Z23 Encounter for immunization; F17.210 Nicotine dependence, cigarettes, uncomplicated; Z88.8 Allergy status to other drugs, medicaments and biological substances; X58.XXXA Exposure to other specified factors, initial encounter; Y93.89 Activity, other specified
CPT/HCPCS: 12001; 12002; 90471; 90715; 99282; 99283; J3490; J0665